=== PATIENT | male | born 1985 | race Caucasian/White ===

== ENCOUNTER 2017-03-18 14:27 | Emergency (ER) | payer MEDICAID ==
[~2017-03-18] VITALS: Ht 172.7 cm; Wt 78.0 kg
[2017-03-18 15:00] VITALS: BP 121/78
--- NOTE | 2017-03-18 17:51 | NUR ---
Patient ambulated to OF to be evaluated as fast track. RN evaluating patient in OF.
--- NOTE | 2017-03-18 18:15 | NUR ---
PATIENT DENIES DISCOMFORT.STILL IN OF.STILL NO BED AVAIL.
--- NOTE | 2017-03-18 18:26 | NUR ---
ERMD WITH PATIENT
[2017-03-18 19:05] VITALS: BP 124/69
--- NOTE | 2017-03-18 19:05 | NUR ---
Patient discharged with v/s stable. Written and verbal after care instructions given and explained. Patient alert, oriented and verbalized understanding of instructions. Ambulatory with steady gait. All questions addressed prior to discharge. ID band removed. Patient advised to follow up with PMD. Rx of ROBAXIN,MOTRIN given. Patient educated on indication of medication including possible reaction and side effects. Opportunity to ask questions provided and answered.
== END 2017-03-18 19:05 | disposition home or self-care (01) ==
LOC: MED 14:27
DX: S22.32XA Fracture of one rib, left side, initial encounter for closed fracture (principal); J45.909 Unspecified asthma, uncomplicated; F17.210 Nicotine dependence, cigarettes, uncomplicated; V19.9XXA Pedal cyclist (driver) (passenger) injured in unspecified traffic accident, initial encounter; Y93.89 Activity, other specified; Y92.89 Other specified places as the place of occurrence of the external cause; Y99.8 Other external cause status

== ENCOUNTER 2018-07-28 18:24 | Inpatient (IN) | payer MEDICAID, OTHER ==
[~2018-07-28] VITALS: Ht 172.7 cm; Wt 74.8 kg
[2018-07-28 18:30] VITALS: BP 106/68
--- NOTE | 2018-07-28 18:35 | NUR ---
pt taken out to the lobby at this time to wait for the next available bed w/vss. er and charge master specialist notified of pt status. will continue to monitor.
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
--- NOTE | 2018-07-28 19:11 | NUR ---
Pt report given to DALE RUBIN. Transfer of care at this time.
--- NOTE | 2018-07-28 19:16 | NUR ---
PT LAYING IN BED, ON PHONE APPEARS TO BE IN NO APPARENT DISTRESS.
--- NOTE | 2018-07-28 19:30 | NUR ---
URINE SPECIMEN NEEDED FOR LAB, PT UNABLE TO PROVIDE SAMPLE AT THIS TIME, PROVIDED W/ WATER, WILL FOLLOW UP.
[2018-07-28 21:05] LABS: APPEARANCE,URINE CLEAR (CLEAR); BILIRUBIN,URINE NEGATIVE (NEGATIVE); BLOOD, URINE NEGATIVE (NEGATIVE); COLOR,URINE YELLOW (YELLOW); LEUKOCYTE ESTERASE ,URINE NEGATIVE (NEGATIVE); NITRITE, URINE NEGATIVE (NEGATIVE); PH,URINE 6.5 (5.0-9.0); UGLUCOSE NEGATIVE (NEGATIVE)
[2018-07-28 21:21] LABS: RBC,URINE 0-5 (RARE) /HPF (0-5); WBC,URINE 0-5 (RARE) /HPF (0-5)
--- NOTE | 2018-07-28 22:20 | NUR ---
Dr. Bernstein evaluating patient at bedside.
[2018-07-28] MEDS ORDERED: MORPHINE SULFATE 4 MG/ML SYR IVP ONE (23:05)
[2018-07-28] MEDS ORDERED: NACL 0.9% 1,000 ML IV SCH (23:05)
[2018-07-28] MEDS ORDERED: ONDANSETRON 4 MG/2 ML VIAL IVP ONE (23:05)
[2018-07-29 00:03] LABS: BASOPHILS % (AUTO) 0.4 % (0.0-2.0); EOSINOPHILS # (AUTO) 0.1 K/uL (0-0.4); EOSINOPHILS % (AUTO) 0.5 % (0.0-4.0); HEMATOCRIT 41.2 % (36-52); HEMOGLOBIN 13.7 g/dL (12.0-18.0); LYMPHOCYTES # (AUTO) 1.3 K/uL (2.0-11.5); MEAN CORPUSCULAR HEMOGLOBIN 30 pg (27-31); MEAN CORPUSCULAR HGB CONC 33 g/dL (33-37); MEAN CORPUSCULAR VOLUME 89.5 fL (80-94); MONOCYTES # (AUTO) 1.1 K/uL (0.8-1.0); MONOCYTES % (AUTO) 9.6 % (1.7-9.3); NEUTROPHILS # (AUTO) 9.4 K/uL (1.8-7.7); NEUTROPHILS % (AUTO) 78.5 % (42.2-75.2); PLATELET COUNT (AUTO) 282 K/uL (140-450); RED CELL DISTRIBUTION WIDTH 12.8 % (11.6-13.7)
--- NOTE | 2018-07-29 00:07 | NUR ---
PT LAYING IN BED, COMFORT NEEDS MET AT THIS TIME, AWAITING LAB RESULTS FOR PT TO BE TAKEN TO CT SCAN, VSS.
[2018-07-29 00:21] LABS: ANION GAP 8.6 (8-16); CARBON DIOXIDE 30.1 mmol/L (21-32); POTASSIUM 3.7 mmol/L (3.5-5.1); TOTAL BILIRUBIN 0.5 mg/dL (0.0-1.0)
--- NOTE | 2018-07-29 01:07 | NUR ---
PT TAKEN TO CT
--- NOTE | 2018-07-29 01:26 | NUR ---
Kyler gabriel in [facility] - 07/29/18 at 0127 by JORGE PT TAKEN TO BED 7
--- NOTE | 2018-07-29 01:27 | NUR ---
PT RETURN FROM CT
[2018-07-29] MEDS ORDERED: PIPERACILLIN/TAZOBACTAM 4.5 GM in DEXTROSE 5% 100 ML IV ONE (02:05)
[2018-07-29] MEDS ORDERED: NACL 0.9% 1,000 ML IV ONE (02:05)
[2018-07-29] MEDS ORDERED: MORPHINE SULFATE 4 MG/ML SYR IVP ONE (02:05)
--- NOTE | 2018-07-29 02:12 | NUR ---
Dr. Bernstein re-evaluating patient at bedside.
[2018-07-29] MEDS ORDERED: PIPERACILLIN/TAZOBACTAM 2.25 GM VIAL IV ONE (02:18)
[2018-07-29 02:45] VITALS: BP 107/70
--- NOTE | 2018-07-29 02:45 | NUR ---
PT SLEEPING IN BED, VSS, PENDING ADMISSION.
--- NOTE | 2018-07-29 02:45 | NUR ---
PT ARRIVED AT UNIT VIA BED, PT AMBULATED TO BED, TOLERATED WELL, NO DISTRESS NOTED, REPORT RECEIVED FROM ED NURSE DAWSON RN, PT STABLE , IV TO R AC 20G PATENT, INTACT, PT ON ROOM AIR NO SOB, PT STATED PAIN AT 4/10 BUT TOLERABLE, ORIENT PT TO ROOM, BED, AND CALL LIGHT , PT STATED UNDERSTANDING, MRSA SWAB TAKEN, V/S TAKEN, WNL, LEFT PT SLEEPING, NO DISTRESS NOTED, CALL LIGHT WITHIN REACH, BED IN LOWEST POSITION, WILL CONTINUE TO MONITOR.
[2018-07-29] MEDS ORDERED: DEXT 5% / NACL 0.45% 1,000 ML IV ONE (03:00)
--- NOTE | 2018-07-29 03:25 | NUR ---
Patient will be admitted to care of Dr Treviño. Admited to [facility]. Will go to room 106B. Belongings list completed. Report to CARYN Cueto.
--- NOTE | 2018-07-29 05:20 | NUR ---
PT SLEEPING, NO DISTRESS NOTED, CALL LIGHT WITHIN REACH, WILL CONTINUE TO MONITOR.
--- NOTE | 2018-07-29 06:15 | NUR ---
PT STATED FEELING PAIN 04/28, PAIN MEDICATION GIVEN, PT TOLERATED WELL, NO DISTRESS NOTED, CALL LIGHT WITHIN REACH, WILL CONTINUE TO MONITOR. Addendum: 07/29/18 at 0646 by Nory Sommer RN WRONG PT.
[2018-07-29 06:58] LABS: BASOPHILS % (AUTO) 0.3 % (0.0-2.0); EOSINOPHILS # (AUTO) 0.1 K/uL (0-0.4); EOSINOPHILS % (AUTO) 0.4 % (0.0-4.0); HEMATOCRIT 41.2 % (36-52); HEMOGLOBIN 13.7 g/dL (12.0-18.0); LYMPHOCYTES # (AUTO) 1.2 K/uL (2.0-11.5); LYMPHOCYTES % (AUTO) 8.3 % (20.5-51.1); MEAN CORPUSCULAR HEMOGLOBIN 30 pg (27-31); MEAN CORPUSCULAR HGB CONC 33 g/dL (33-37); MEAN CORPUSCULAR VOLUME 89.7 fL (80-94); MONOCYTES # (AUTO) 1.1 K/uL (0.8-1.0); MONOCYTES % (AUTO) 7.5 % (1.7-9.3); NEUTROPHILS # (AUTO) 12.3 K/uL (1.8-7.7); NEUTROPHILS % (AUTO) 83.5 % (42.2-75.2); PLATELET COUNT (AUTO) 283 K/uL (140-450); RED BLOOD CELL COUNT(AUTO) 4.59 MIL/uL (4.20-6.10); RED CELL DISTRIBUTION WIDTH 13.1 % (11.6-13.7); WHITE BLOOD COUNT (AUTO) 14.7 K/uL (4.8-10.8)
[2018-07-29 07:18] LABS: ALBUMIN 2.8 g/dL (3.4-5.0); ANION GAP 13.1 (8-16); CARBON DIOXIDE 27.5 mmol/L (21-32); CREATININE 1.1 mg/dL (0.7-1.3); POTASSIUM 4.6 mmol/L (3.5-5.1); TOTAL BILIRUBIN 0.7 mg/dL (0.0-1.0)
--- NOTE | 2018-07-29 07:21 | NUR ---
ENDORSED PT TO DAY SHIFT NURSE GRZEGORZ RN, PT STABLE, NO DISTRESS NOTED, CALL LIGHT WITHIN REACH Addendum: 07/29/18 at 0733 by Nory Sommer RN ENDORSED PT TO DAY SHIFT NURSE TOÑO RN, PT STABLE, NO DISTRESS NOTED, CALL LIGHT WITHIN REACH
--- NOTE | 2018-07-29 07:25 | NUR ---
RECEIVED PT FROM FLAME ANNEALING MACHINE OPERATOR NURSE, NIKI, PT IS AWAKE AND LYING ON THE BED WITH SIDE RAILS UP AND CALL LIGHT WITHIN REACH. PT HAS AN IV LINE ON THE RT AC G.20 WITH D5 1/2 NS RUNNING AT 75 ML/HR, INTACT. PT WAS ON NPO EXCEPT MEDS AND ALERT, ORIENTED. PT DENIES PAIN AT THIS TIME. WILL CONTINUE TO MONITOR PT.
--- NOTE | 2018-07-29 07:50 | NUR ---
PT IS AWAKE AND VITAL SIGNS TAKEN AND WITHIN NORMAL LIMITS. NO SIGN OF DISTRESS NOTED AND WILL CONTINUE TO MONITOR PT.
[2018-07-29 08:00] VITALS: BP 110/72
--- NOTE | 2018-07-29 08:28 | NUR ---
PATIENT HAS BEEN SCREENED AND CATEGORIZED HIGH NUTRITION RISK. PATIENT WILL BE SEEN WITHIN 1-2 DAYS OF ADMISSION. 07/29/18 07/30/[address]
--- NOTE | 2018-07-29 09:20 | NUR ---
DR. LEAHY WENT TO PT'S ROOM AND SPOKE TO PT REGARDING THE PLAN OF CARE AND PT VERBALIZED UNDERSTANDING.
--- NOTE | 2018-07-29 09:38 | NUR ---
PT IS AWAKE, ALERT AND ORIENTED, CONSENT WAS SIGNED FOR THE LAPAROSCOPIC POSSIBLE APPENDECTOMY PROCEDURE, WILL FACILITATE PRE-OPERATIVE CHECKLIST.
--- NOTE | 2018-07-29 11:20 | NUR ---
PT WAS TAKEN BY OR NURSES FOR A LAPAROSCOPIC POSSIBLE APPENDECTOMY PROCEDURE TO BE DONE BY DR. MADY LOBO.
[2018-07-29] MEDS ORDERED: BUPIVACAINE-MPF/EPI 0.5% 30 ML VIAL INJ ONE (11:46)
[2018-07-29] MEDS ORDERED: PIPER/TAZO 3.375GM/D5W PREMIX 50 ML IV SCH (12:00)
[2018-07-29] MEDS ORDERED: ONDANSETRON 4 MG/2 ML VIAL ONE (12:02)
[2018-07-29] MEDS ORDERED: DEXAMETHASONE 4 MG/ML VIAL ONE (12:02)
[2018-07-29] MEDS ORDERED: NEOSTIGMINE 1:1000 10 MG/10 ML VIAL ONE (12:02)
[2018-07-29] MEDS ORDERED: ROCURONIUM 50 MG/5 ML VIAL IV ONE (12:02)
[2018-07-29] MEDS ORDERED: GLYCOPYRROLATE 0.2 MG/ML VIAL ONE (12:02)
[2018-07-29] MEDS ORDERED: DESFLURANE 240 ML BTL INH ONE (12:02)
[2018-07-29] MEDS ORDERED: PIPERACILLIN/TAZOBACTAM 3.375 GM VIAL IV ONE ×2 (12:02→12:38)
[2018-07-29] MEDS ORDERED: SUCCINYLCHOLINE CHLORIDE 200 MG/10 ML VIAL IVP ONE (12:02)
[2018-07-29] MEDS ORDERED: PROPOFOL 200 MG/20 ML VIAL IV ONE (12:02)
[2018-07-29] MEDS ORDERED: fentaNYL 0.05 MG/ML VIAL ONE (12:03)
[2018-07-29] MEDS ORDERED: HYDROmorphone PFS 2 MG/ML SYR ONE (12:03)
[2018-07-29] MEDS ORDERED: HYDROmorphone 1 MG/ML AMP IVP PRN (12:05)
[2018-07-29] MEDS ORDERED: ONDANSETRON 4 MG/2 ML VIAL IVP PRN (12:05)
[2018-07-29] MEDS ORDERED: MORPHINE SULFATE 2 MG/ML SYR IVP PRN (13:45)
[2018-07-29] MEDS ORDERED: ONDANSETRON 4 MG/2 ML VIAL IV PRN (13:45)
[2018-07-29] MEDS ORDERED: HYDROcodone/APAP 5/325 MG 1 TAB TAB PO PRN (13:45)
[2018-07-29] MEDS: NACL 0.9% 1,000 ML IV SCH ×2 (13:45→22:35)
[2018-07-29 15:05] VITALS: BP 115/69
--- NOTE | 2018-07-29 15:05 | NUR ---
PT IS BACK TO THE ROOM FROM LAPAROSCOPIC POSSIBLE APPENDECTOMY PROCEDURE. VITAL SIGNS TAKEN ANS IS WITHIN NORMAL LIMITS AND STABLE. WILL MONITOR PT.
[2018-07-29 16:00] VITALS: BP 119/77
--- NOTE | 2018-07-29 16:00 | NUR ---
PT IS ASLEEP AND RESPIRATIONS EVEN, VITAL SIGNS TAKEN AND IS WITHIN NORMAL LIMITS, NO SIGN OF DISTRESS NOTED AND WILL CONTINUE TO MONITOR.
[2018-07-29] MEDS: PIPERACILLIN/TAZOBACTAM 4.5 GM in DEXTROSE 5% 100 ML IV SCH ×2 (18:41→23:38)
--- NOTE | 2018-07-29 18:45 | NUR ---
PT IS AWAKE WITH FAMILY ON THE BEDSIDE, CHIQUITA BULB DRAINED 20ML, MEDICATION GIVEN VIA IVPB, AND PT TOLERATED IT, ORAL CARE DONE AND NO SIGN OF DISTRESS NOTED. WILL CONTINUE TO MONITOR.
--- NOTE | 2018-07-29 19:30 | NUR ---
ENDORSED PT TO SCOW HAND NURSEROSALBA FOR CONTINUITY OF CARE, PT IS STABLE AT THIS TIME WITH FAMILY ON THE BEDSIDE.
--- NOTE | 2018-07-29 19:30 | NUR ---
RECD. RESTING IN BED, AWAKE, A/OX4. RESPIRATION EVEN AND UNLABORED. IV OF D51/2 NS AT 75 ML/HR INFUSING, RIGHT AC G20. INCISION IN THE ABDOMEN COVERED WITH DRESSING, WITH 1 CHIQUITA AT THE RIGHT LOWER QUADRANT DRAINING SEROSANGUINEOUS FLUID, MINIMAL AMOUNT. STATED PASSING GAS, HAVEN'T VOIDED YET. ON BILATERAL LEG SEQUENTIALS. PLAN OF CARE FOR THE SHIFT DISCUSSED. VERBALIZED UNDERSTANDING. DENIES PAIN 0/10. VS STABLE.
[2018-07-29 20:00] VITALS: BP 115/80
--- NOTE | 2018-07-29 20:00 | NUR ---
Patient's Plan of Care was discussed and reviewed with CLAM SHUCKER: ROSALBA MARTÍNEZ
--- NOTE | 2018-07-29 21:10 | NUR ---
ASSISTED TO GET OUT OF BED AND VOID IN THE URINAL. BACK TO BED AFTER VOIDING.
--- NOTE | 2018-07-29 22:30 | NUR ---
PAGED DR. LOBO THREE TIMES, PATIENT DOES NOT WANT NORCO, WANTS MOTRIN.
[2018-07-29] MEDS: MORPHINE SULFATE 4 MG/ML SYR IV PRN (23:35)
[2018-07-30] VITALS: BP 112/75
--- NOTE | 2018-07-30 | NUR ---
SLEEPING COMFORTABLY IN BED.
--- NOTE | 2018-07-30 04:00 | NUR ---
STILL SLEEPING COMFORTABLY IN BED.
[2018-07-30] MEDS: NACL 0.9% 1,000 ML IV SCH ×2 (05:09→12:13)
[2018-07-30] MEDS: PIPERACILLIN/TAZOBACTAM 4.5 GM in DEXTROSE 5% 100 ML IV SCH ×3 (05:49→17:53)
[2018-07-30] MEDS: MORPHINE SULFATE 4 MG/ML SYR IV PRN (05:53)
--- NOTE | 2018-07-30 07:00 | NUR ---
CONDITION REMAIN STABLE. COMPLAINT OF ABDOMINAL PAIN ATTENDED PROMPTLY, MEDICATED ORDERED. WILL ENDORSED TO AM NURSE FOR CONTINUITY OF CARE.
--- NOTE | 2018-07-30 07:15 | NUR ---
ENDORSED TO AM NURSE FOR CONTINUITY OF CARE.
--- NOTE | 2018-07-30 07:16 | NUR ---
RECEIVED REPORT FROM THE APPLE PRESS OPERATOR NURSE AT BEDSIDE FOR CONTINUITY OF CARE. PT IS AWAKE AND ORIENTED. INTRODUCED MYSELF AND UPDATED THE BOARD. PT IS ON ROOM AIR. R AC 20G NS 130ML INFUSING. ABD DRESSINGS, S/P OPEN APPY 07/29. CHIQUITA DRAIN IN PLACE. V/S WITHIN NORMAL RANGE. MILD PAIN. TOLERABLE. LBM YESTERDAY AM. PASSING GAS. STILL NPO. EMPTIED 400ML YELLOW URINE FROM URINAL. WILL CONTINUE TO MONITOR PT.
[2018-07-30 08:00] VITALS: BP 115/80
--- NOTE | 2018-07-30 09:45 | NUR ---
PT IS SLEEPING SOUNDLY NO SIGNS OF DISTRESS.
--- NOTE | 2018-07-30 10:15 | NUR ---
DR. LOBO CAME IN TO ASSESS PT. ORDERED TPN. SPOKE TO SUPERVISOR SHRIMP POND.
--- NOTE | 2018-07-30 11:37 | NUR ---
CM NOTE INITIAL REVIEW FAXED TO [facility] [phone] MARITZA # [phone]
[2018-07-30 12:10] LABS: BASOPHILS % (AUTO) 0.1 % (0.0-2.0); HEMATOCRIT 39.9 % (36-52); HEMOGLOBIN 13.3 g/dL (12.0-18.0); LYMPHOCYTES # (AUTO) 1.3 K/uL (2.0-11.5); LYMPHOCYTES % (AUTO) 9.5 % (20.5-51.1); MEAN CORPUSCULAR HEMOGLOBIN 30 pg (27-31); MEAN CORPUSCULAR HGB CONC 33 g/dL (33-37); MEAN CORPUSCULAR VOLUME 88.5 fL (80-94); MONOCYTES # (AUTO) 1.2 K/uL (0.8-1.0); MONOCYTES % (AUTO) 8.9 % (1.7-9.3); NEUTROPHILS # (AUTO) 10.8 K/uL (1.8-7.7); NEUTROPHILS % (AUTO) 81.5 % (42.2-75.2); PLATELET COUNT (AUTO) 334 K/uL (140-450); RED BLOOD CELL COUNT(AUTO) 4.51 MIL/uL (4.20-6.10); WHITE BLOOD COUNT (AUTO) 13.2 K/uL (4.8-10.8)
--- NOTE | 2018-07-30 12:15 | NUR ---
ADMINISTERED NEW IVF AND ZOSYN. PT SLEEPING. NO SIGNS OF DISTRESS. WILL CONTINUE TO MONITOR PT.
[2018-07-30 13:39] LABS: ALBUMIN 2.2 g/dL (3.4-5.0); ANION GAP 10.9 (8-16); CARBON DIOXIDE 29.5 mmol/L (21-32); POTASSIUM 4.4 mmol/L (3.5-5.1); TOTAL BILIRUBIN 0.5 mg/dL (0.0-1.0)
--- NOTE | 2018-07-30 14:03 | NUR ---
ADMINISTERED D10 IVF AT 130ML/HR PER MD AND PHARMACIST. PT JUST SLEEPING. NO SIGNS OF DISTRESS. WILL CONTINUE TO MONITOR PT.
[2018-07-30] MEDS: DEXTROSE 10% 1,000 ML IV SCH ×2 (14:05→21:07)
--- NOTE | 2018-07-30 14:50 | NUR ---
07/30/18 RD INITIAL ASSESSMENT COMPLETED PLEASE REFER TO NUTRITION ASSESSMENT UNDER CARE ACTIVITY FOR ESTIMATED NUTRITIONAL NEEDS. 1.CONTINUE NPO MEDICALLY APPROPRIATE. 2.IF PT IS GOING TO BE NPO FOR >2 DAYS, CONSIDER TPN PER MD ORDERS. 3. RD TO FOLLOW-UP 2-3 DAYS, HIGH RISK KIMBERLY URE[address]A RD
[2018-07-30 16:00] VITALS: BP 126/89
[2018-07-30] MEDS: HYDROmorphone 1 MG/ML AMP IVP PRN (17:31)
--- NOTE | 2018-07-30 18:23 | NUR ---
LATE ENTRY: ADMINISTERED DILAUDID. PRE MEDICATED PT PRIOR TO DOING WOUND CARE. PT'S BEEN SLEEPING ALL DAY SO I WAITED TO DO WOUND CARE UNTIL HE WOKE UP. REMOVED DRESSING. REMOVED PACKING. PATTED DRY. TOOK PICTURE, MEASURED WOUND, FLUSHED AND REPACKED WOUND. ABDOMINAL PAD AND TAPE. EMPTIED CHIQUITA DRAIN 30ML YELLOWISH RED, CLOUDY DRAINAGE. PT TOLERATED WELL. ADMINISTERED ZOSYN. WILL CONTINUE TO MONITOR PT. Addendum: 07/30/18 at 1826 by Cley Acosta RN MEASUREMENTS FOR WOUND: MIDLINE ABD 10CM (L) X 2.5CM (W) X 2 CM (D). ADIPOSE TISSUE.
--- NOTE | 2018-07-30 19:25 | NUR ---
ENDORSED PT TO THE NIGHTSHIFT NURSE AT BEDSIDE FOR CONTINUITY OF CARE. PT IS IN STABLE CONDITION.
--- NOTE | 2018-07-30 19:25 | NUR ---
RECEIVED BEDSIDE REPORT FROM RN KARLA, PT AWAKE IN BED, ON RA, NO SIGNS OF DISTRESS. IV ON RIGHT AC 20 G INFUSING D 10 AT 130 ML/HR, DRESSING IN TACT. RIGHT CHIQUITA DRAIN, SEROSANGUINEOUS DRAINAGE NOTED AT 25 ML, DRESSING INTACT, AND CLEAN, PICTURE FOR APPENDECTOMY TAKEN AND PLACED IN CHART. PT DENIES PAIN AT THIS TIME. CALL LIGHT WITHIN REACH, WILL CONTINUE TO MONITOR.
--- NOTE | 2018-07-30 22:35 | NUR ---
CALLED DR LOBO TO FOLLOW UP ON ORDER FOR PT TO BE PLACED ON TELE MONITORING, DR LOBO STATED PT DOES NOT NEED TO BE ON TELE AND IS OKAY TO BE ON MED-SURG. WILL CANCEL ORDER. WILL CONTINUE TO MONITOR.
--- NOTE | 2018-07-30 22:48 | NUR ---
URINE OUTPUT AT 400 ML, CLEAR YELLOW. PT DENIES PAIN, ICE CHIPS OFFERED. WILL CONTINUE TO MONITOR.
[2018-07-31] VITALS: BP 130/78
--- NOTE | 2018-07-31 00:05 | NUR ---
V/S TAKEN ALL WITHIN BASELINE, WILL GIVE DUE MEDICATION. DENIES PAIN. CALL LIGHT WITHIN REACH, WILL CONTINUE TO MONITOR.
--- NOTE | 2018-07-31 03:00 | NUR ---
PT SLEEPING IN BED NO SIGNS OF DISTRESS. WILL CONTINUE TO MONITOR.
[2018-07-31] MEDS: DEXTROSE 10% 1,000 ML IV SCH ×3 (04:52→20:13)
[2018-07-31] MEDS: PIPERACILLIN/TAZOBACTAM 4.5 GM in DEXTROSE 5% 100 ML IV SCH ×6 (05:21→23:31)
[2018-07-31] MEDS ORDERED: DEXTROSE 10% 1,000 ML IV ONE (05:53)
--- NOTE | 2018-07-31 05:59 | NUR ---
PT ASLEEP IN BED NO SIGNS OF DISTRESS. FLUSHED IV WITH 10 ML. WILL CONTINUE TO MONITOR.
--- NOTE | 2018-07-31 07:17 | NUR ---
ENDORSED PT TO DAY SHIFT NURSE, PT STABLE.
--- NOTE | 2018-07-31 07:18 | NUR ---
RECEIVED SBAR REPORT FROM CARYN ALCARAZ AT PT BEDSIDE. PATIENT IS ALERT AND ORIENTED. DENIES ABDOMINAL PAIN. ON ROOM AIR, NO ACUTE RESPIRATORY DISTRESS NOTED. IV SITE PATENT AND INTACT. ABDOMINAL WOUND DRESSING CLEAN AND INTACT. CHIQUITA DRAIN TO 15ML SEROSANGUINEOUS DRAINAGE. DENIES N/V, CALL LIGHT WITHIN REACH. MADE AWARE OF CURRENT PLAN OF CARE, IN AGREEMENT.
[2018-07-31 07:59] LABS: BASOPHILS % (AUTO) 0.2 % (0.0-2.0); EOSINOPHILS # (AUTO) 0.1 K/uL (0-0.4); EOSINOPHILS % (AUTO) 0.6 % (0.0-4.0); HEMATOCRIT 37.2 % (36-52); HEMOGLOBIN 12.6 g/dL (12.0-18.0); LYMPHOCYTES # (AUTO) 1.9 K/uL (2.0-11.5); LYMPHOCYTES % (AUTO) 16.1 % (20.5-51.1); MEAN CORPUSCULAR HEMOGLOBIN 30 pg (27-31); MEAN CORPUSCULAR HGB CONC 34 g/dL (33-37); MONOCYTES # (AUTO) 1.1 K/uL (0.8-1.0); MONOCYTES % (AUTO) 9.6 % (1.7-9.3); NEUTROPHILS # (AUTO) 8.7 K/uL (1.8-7.7); NEUTROPHILS % (AUTO) 73.5 % (42.2-75.2); PLATELET COUNT (AUTO) 352 K/uL (140-450); RED BLOOD CELL COUNT(AUTO) 4.22 MIL/uL (4.20-6.10); RED CELL DISTRIBUTION WIDTH 13.1 % (11.6-13.7); WHITE BLOOD COUNT (AUTO) 11.9 K/uL (4.8-10.8)
[2018-07-31 08:00] VITALS: BP 107/78
[2018-07-31] MEDS: ENOXAPARIN 40 MG/0.4 ML SYR SUBQ SCH (09:07)
--- NOTE | 2018-07-31 10:17 | NUR ---
PATIENT RESTING IN BED, DENIES DISCOMFORT.
--- NOTE | 2018-07-31 11:30 | NUR ---
PATIENT SEEN BY DR. LOBO AT BEDSIDE, CONTINUE WITH CURRENT PLAN OF CARE. WOUND DRESSING CHANGED AT BEDSIDE. MD AWARE OF CURRENT CHIQUITA OUTPUT. NO ACUTE DISTRESS NOTED.
[2018-07-31] MEDS: HYDROmorphone 1 MG/ML AMP IVP PRN (11:31)
--- NOTE | 2018-07-31 11:57 | NUR ---
PATIENT SEEN BY DR. LEAHY AT BEDSIDE. NO NEW ORDERS. CONTINUE WITH CURRENT PLAN OF CARE.
--- NOTE | 2018-07-31 14:12 | NUR ---
CM NOTE CONCURRENT REVIEW FAXED TO [facility] [phone] MARITZA # [phone]
--- NOTE | 2018-07-31 15:00 | NUR ---
ASSISTED PT IN AMBULATION AROUND NURSING UNIT. TOLERATED WELL, NO ACUTE DISTRESS NOTED. PATIENT LINENS CHANGED, CLEAN AND DRY.
[2018-07-31 16:00] VITALS: BP 112/79
--- NOTE | 2018-07-31 17:20 | NUR ---
PATIENT RESTING IN BED. NO ACUTE DISTRESS NOTED.
--- NOTE | 2018-07-31 19:10 | NUR ---
SBAR REPORT GIVEN TO CARYN RIZVI AT PT BEDSIDE. PATIENT RESTING IN BED, FAMILY AT BEDSIDE, AWARE OF CURRENT PLAN OF CARE. NO ACUTE DISTRESS NOTED.
--- NOTE | 2018-07-31 19:11 | NUR ---
REPORT RECEIVED FROM AM NURSE AT BEDSIDE. PT IN STABLE CONDITION. AAOX4. INTRODUCED SELF TO FAMILY AND PT. BOARD UPDATED. IV SITE PATENT AND INTACT R AC 20G RUNNING D10@130ML/HR. SKIN WARM, DRY, AND NOT INTACT DUE TO WOUND INDUSTRIAL SAFETY AND HEALTH TECHNICIAN FROM SURGERY. CHIQUITA DRAINING PROPERLY. BED LOCKED IN LOW POSITION. CALL NEGRON WITHIN REACH. SAFETY MEASURES IN PLACE. Addendum: 07/31/18 at 2117 by Eagle Ballard RN PT HAS NO COMPLAINTS OF PAIN.
--- NOTE | 2018-07-31 21:10 | NUR ---
PT LAYING IN BED ALERT AND ORIENTED. NO COMPLAINTS OF PAIN.
--- NOTE | 2018-07-31 23:31 | NUR ---
VASQUEZ MORROW. PT TOLERATED WELL. PT SLEEPING WITH NO S/S OF DISTRESS.
[2018-08-01] VITALS: BP 127/73
--- NOTE | 2018-08-01 01:00 | NUR ---
CHIQUITA DRAIN DRAINING PROPERLY. OUTPUT OF 35ML OF SEROSANGUINOUS FLUID. DRESSING DRY AND INTACT. PT STATES NO PAIN. NEGATIVE PRESSURE REAPPLIED TO DRAIN. WILL CONTINUE TO MONITOR.
--- NOTE | 2018-08-01 03:05 | NUR ---
PT SLEEPING COMFORTABLY IN BED. NO S/S OF DISTRESS. RESPIRATIONS WNL AND UNLABORED. WILL CONTINUE TO MONITOR.
[2018-08-01] MEDS: DEXTROSE 10% 1,000 ML IV SCH ×3 (03:35→20:23)
[2018-08-01] MEDS: PIPERACILLIN/TAZOBACTAM 4.5 GM in DEXTROSE 5% 100 ML IV SCH ×3 (05:05→18:17)
--- NOTE | 2018-08-01 05:05 | NUR ---
VASQUEZ MORROW. PT TOLERATING WELL.
--- NOTE | 2018-08-01 07:10 | NUR ---
REPORT GIVEN TO DIXON RUBIN. PT IN STABLE CONDITION.
[2018-08-01 08:00] VITALS: BP 126/81
--- NOTE | 2018-08-01 08:30 | NUR ---
Patient in bed, abd incision with drsg, and CHIQUITA drain with minimal output. No co pain. Patient is passing flatus, and is starting to het hungry. Otis Whitten RN
[2018-08-01] MEDS: ENOXAPARIN 40 MG/0.4 ML SYR SUBQ SCH (10:12)
[2018-08-01 11:57] LABS: BASOPHILS % (AUTO) 0.5 % (0.0-2.0); EOSINOPHILS # (AUTO) 0.1 K/uL (0-0.4); EOSINOPHILS % (AUTO) 1.3 % (0.0-4.0); HEMATOCRIT 41.1 % (36-52); HEMOGLOBIN 13.9 g/dL (12.0-18.0); LYMPHOCYTES # (AUTO) 1.5 K/uL (2.0-11.5); LYMPHOCYTES % (AUTO) 15.5 % (20.5-51.1); MEAN CORPUSCULAR HEMOGLOBIN 30 pg (27-31); MEAN CORPUSCULAR HGB CONC 34 g/dL (33-37); MEAN CORPUSCULAR VOLUME 88.7 fL (80-94); MONOCYTES # (AUTO) 0.7 K/uL (0.8-1.0); MONOCYTES % (AUTO) 7.3 % (1.7-9.3); NEUTROPHILS # (AUTO) 7.2 K/uL (1.8-7.7); NEUTROPHILS % (AUTO) 75.4 % (42.2-75.2); PLATELET COUNT (AUTO) 411 K/uL (140-450); RED BLOOD CELL COUNT(AUTO) 4.63 MIL/uL (4.20-6.10); RED CELL DISTRIBUTION WIDTH 13.1 % (11.6-13.7); WHITE BLOOD COUNT (AUTO) 9.6 K/uL (4.8-10.8)
--- NOTE | 2018-08-01 12:00 | NUR ---
Patient NPO, and is wanting food. I encouraged him to talk to primary MD regarding diet order. No co pain. Otis Whitten RN
--- NOTE | 2018-08-01 14:51 | NUR ---
CM NOTE CONCURRENT REVIEW FAXED TO [facility] [place] [phone] MARITZA # [phone]
--- NOTE | 2018-08-01 18:00 | NUR ---
Patient request to ambulate in hernandez, and I did disconnect the IV so as the patient can ambulate freely in hernandez, and patient ambulates > 300 feet, and no signs of exertion. Otis Whitten RN
--- NOTE | 2018-08-01 19:30 | NUR ---
REPORT RECEIVED FROM AM NURSE AT BEDSIDE. PT IN STABLE CONDITION. AAOX4. BOARD UPDATED AND INTRODUCED SELF TO PT. IV SITE R AC 20G RUNNING D10@130ML/HR PATENT AND INTACT. SKIN WARM, DRY, AND NOT INTACT DUE TO SURGICAL WOUND. DRESSING DRY AND INTACT. CHIQUITA DRAIN DRAINING PROPERLY THROUGH NEGATIVE PRESSURE. PT AMBULATORY. BED LOCKED IN LOW POSITION. CALL NEGRON WITHIN REACH.
--- NOTE | 2018-08-01 22:40 | NUR ---
PT SLEEPING COMFORTABLY WITH NO COMPLAINTS OF PAIN OR DISCOMFORT. SYMMETRICAL CHEST EXPANSION VIEWED. AUDIBLE BREATHING NOTED. WILL CONTINUE TO MONITOR.
[2018-08-02] VITALS: BP 118/81
[2018-08-02] MEDS: PIPERACILLIN/TAZOBACTAM 4.5 GM in DEXTROSE 5% 100 ML IV SCH ×4 (00:39→17:10)
--- NOTE | 2018-08-02 00:39 | NUR ---
VASQUEZ MORROW. PT TOLERATED WELL.
--- NOTE | 2018-08-02 03:00 | NUR ---
PT SLEEPING COMFORTABLY IN BED SUPINE. NO S/S OF DISTRESS. AUDIBLE BREATHING NOTED. WILL CONTINUE TO MONITOR.
[2018-08-02] MEDS: DEXTROSE 10% 1,000 ML IV SCH ×3 (03:27→19:45)
--- NOTE | 2018-08-02 05:15 | NUR ---
VASQUEZ MORROW. PT TOLERATED WELL.
--- NOTE | 2018-08-02 07:00 | NUR ---
REPORT GIVEN TO AM NURSE AT BEDSIDE. PT IN STABLE CONDITION.
--- NOTE | 2018-08-02 07:00 | NUR ---
RECEIVED REPORT FROM NIGHTSHIFT NURSE AT BEDSIDE. PATIENT IS ASLEEP AT THIS TIME. PATIENT IS AROUASABLE. ASSESSED PATIENT'S DRESSING. DRESSING IS DRY AND INTACT. PATIENT HAS VERY LITTLE DRAINAGE IN CHIQUITA TUBE. DRAINAGE APPEARS SEROSANGUINEOUS AT THIS TIME. PER REPORT, DRAINAGE IS DECREASING AND 40 ML WAS DRAINED LAST NIGHT. PATIENT HAS AN IV NOTED ON HIS RIGHT AC 20 G. NO DISTRESS NOTED. NO PAIN NOTED. UPDATED BOARD IN PATIENT'S ROOM. CALL LIGHT WITHIN REACH OF PATIENT. WILL CONTINUE TO MONITOR PATIENT.
[2018-08-02 08:00] VITALS: BP 128/75
[2018-08-02] MEDS: ENOXAPARIN 40 MG/0.4 ML SYR SUBQ SCH (09:42)
--- NOTE | 2018-08-02 10:52 | NUR ---
08/02/18 RD FOLLOW UP COMPLETED PLEASE REFER TO NUTRITION PROGRESS NOTE UNDER CARE ACTIVITY FOR ESTIMATED NUTRITIONAL NEEDS. 1. CONTINUE FULL LIQUID DIET TOLERATED. 2. RECOMMEND HEALTH SHAKES WITH EVERY MEAL. 3. RD TO FOLLOW-UP 5-7 DAYS, LOW RISK KIMBERLY UREÑA, RD
--- NOTE | 2018-08-02 10:55 | NUR ---
PATIENT RESTING AT THIS TIME. NO DISTRESS NOTED. WILL CONTINUE TO MONITOR PATIENT.
--- NOTE | 2018-08-02 11:34 | NUR ---
CM NOTE CONCURRENT REVIEW FAXED TO [facility] [phone] MARITZA # [phone]
--- NOTE | 2018-08-02 15:43 | NUR ---
ASKED PATIENT IF I CAN START A NEW IV LINE SINCE HIS LINE . PATIENT REFUSED. WILL CONTINUE TO MONITOR PATIENT.
[2018-08-02 16:00] VITALS: BP 111/66
--- NOTE | 2018-08-02 16:29 | NUR ---
PATIENT WALKING AROUND NURSING STATION. PATIENT ABLE TO AMBULATE WELL. NO EXACERBATED PAIN IN ABDOMEN WHILE WALKING. WILL CONTINUE TO MONITOR PATIENT.
--- NOTE | 2018-08-02 19:15 | NUR ---
GAVE REPORT TO NIGHTSHIFT NURSE AT BEDSIDE. PATIENT IN STABLE CONDITION.
--- NOTE | 2018-08-02 19:16 | NUR ---
RECEIVED REPORT FROM DAY SHIFT RN FOR CONTINUITY OF CARE. PT IS A/OX4, ON ROOM AIR. PT IS ABLE TO MAKE NEEDS KNOWN, ABLE TO FOLLOW COMMANDS. PT AMBULATES WITH STEADY GAIT. PT IS S/P APPENDECTOMY WITH MYNOR MINER DRAINING SEROSANGUINEOUS SECRETIONS. PT HAS A 20G IV TO RIGHT AC, ASYMPTOMATIC. DISCUSSED PLAN OF CARE WITH PT, PT VERBALIZED UNDERSTANDING. VITAL SIGNS WITHIN NORMAL LIMITS. PT STABLE, NO SIGNS OF DISTRESS NOTED AT THIS TIME. BED IN LOWEST POSITION, BED ALARM ON. CALL LIGHT WITHIN REACH, WILL CONTINUE TO MONITOR.
[2018-08-02 19:42] VITALS: BP 148/91
--- NOTE | 2018-08-02 22:00 | NUR ---
PT STABLE, NO SIGNS OF DISTRESS NOTED AT THIS TIME. BED IN LOWEST POSITION, BED ALARM ON. CALL LIGHT WITHIN REACH, WILL CONTINUE TO MONITOR.
[2018-08-03] VITALS: BP 125/79
--- NOTE | 2018-08-03 | NUR ---
IV ABX NOW INFUSING, PT TOLERATING WELL. VITAL SIGNS WITHIN NORMAL LIMITS. PT STABLE, NO SIGNS OF DISTRESS NOTED AT THIS TIME. BED IN LOWEST POSITION, BED ALARM ON. CALL LIGHT WITHIN REACH, WILL CONTINUE TO MONITOR.
[2018-08-03] MEDS: PIPERACILLIN/TAZOBACTAM 4.5 GM in DEXTROSE 5% 100 ML IV SCH ×2 (00:55→05:38)
--- NOTE | 2018-08-03 02:00 | NUR ---
PT RESTING, STABLE, NO SIGNS OF DISTRESS NOTED AT THIS TIME. BED IN LOWEST POSITION, BED ALARM ON. CALL LIGHT WITHIN REACH, WILL CONTINUE TO MONITOR.
--- NOTE | 2018-08-03 04:15 | NUR ---
PT SLEEPING, EASILY AWAKENED. PT STABLE, NO SIGNS OF DISTRESS NOTED AT THIS TIME. BED IN LOWEST POSITION, BED ALARM ON. CALL LIGHT WITHIN REACH, WILL CONTINUE TO MONITOR.
[2018-08-03] MEDS ORDERED: DEXTROSE 10% 1,000 ML IV ONE (06:16)
[2018-08-03] MEDS: DEXTROSE 10% 1,000 ML IV SCH ×2 (06:20→09:49)
--- NOTE | 2018-08-03 06:20 | NUR ---
CHIQUITA DRAIN HAD ABOUT 20ML OF SEROSANGUINEOUS SECRETIONS. CHIQUITA DRAINED.
[2018-08-03 07:11] LABS: ALBUMIN 2.3 g/dL (3.4-5.0); TOTAL BILIRUBIN 0.3 mg/dL (0.0-1.0)
[2018-08-03 07:19] LABS: POTASSIUM 3.8 mmol/L (3.5-5.1)
[2018-08-03 07:34] LABS: ANION GAP 8.8 (8-16)
--- NOTE | 2018-08-03 07:34 | NUR ---
ENDORSED PT TO DAY SHIFT RN FOR CONTINUITY OF CARE. PT IN STABLE CONDITION.
--- NOTE | 2018-08-03 07:35 | NUR ---
RECEIVED REPORT FROM THE SHAFT REPAIRER CAROL ANN. PT IS A'OX4 VERBALLY RESPONSIVE ABLE TO MAKE HIS NEEDS KNOWN. DENIES ANY PIAN AT THIS TIME. VS WNL. RESPIRATION EVEN AND UNLABOURED. O2 SAT 97% ON RA. CHIQUITA DRAIN INTACT DRAINING SEROUSSANGIUNIOUS FLUID. 25ML DRAIN DURING SHAFT REPAIRER. NKDA. IV SITE CLEAN, DRY INTACT , PATENT INFUSING D10 @130ML/HR , TOLERATING WELL. ABDOMEN SOFT NON DISTENDED. BOWEL SOUNDS PRESENT X4 QUADRANTS. PLAN OF CARE REVIWED WITH THE PATIENT, PATIENT VERBALIZED UNDERSTANDING. SAFETY MEASURES IN PLACE. CALL LIGHT WITHIN REACH. HOURLY ROUNDS ONGOING. WILL CONTINUE TO MONITOR CLOSELY.
[2018-08-03 08:00] VITALS: BP 125/84
[2018-08-03] MEDS: ENOXAPARIN 40 MG/0.4 ML SYR SUBQ SCH (08:35)
[2018-08-03 09:07] LABS: HEMATOCRIT 41.5 % (36-52); MEAN CORPUSCULAR VOLUME 90.1 fL (80-94); WHITE BLOOD COUNT (AUTO) 11.6 K/uL (4.8-10.8)
[2018-08-03 09:08] LABS: BASOPHILS % (AUTO) 0.4 % (0.0-2.0); EOSINOPHILS % (AUTO) 1.9 % (0.0-4.0); LYMPHOCYTES # (AUTO) 2.3 K/uL (2.0-11.5); MEAN CORPUSCULAR HEMOGLOBIN 30 pg (27-31); MEAN CORPUSCULAR HGB CONC 34 g/dL (33-37); MONOCYTES # (AUTO) 0.8 K/uL (0.8-1.0); MONOCYTES % (AUTO) 6.6 % (1.7-9.3); NEUTROPHILS # (AUTO) 8.3 K/uL (1.8-7.7); NEUTROPHILS % (AUTO) 71.1 % (42.2-75.2); PLATELET COUNT (AUTO) 519 K/uL (140-450); RED CELL DISTRIBUTION WIDTH 12.1 % (11.6-13.7)
[2018-08-03 09:09] LABS: EOSINOPHILS # (AUTO) 0.2 K/uL (0-0.4)
--- NOTE | 2018-08-03 09:15 | NUR ---
PATIENT LYING DOWN IN BED SLEEPING, AROUSABLE BY VOICE. NO DISTRESS NOTED. DENIES ANY PAIN. REFUSED ENOXAPARIN SUB-Q INJECTION. WILL CONTINUE TO MONITOR.
--- NOTE | 2018-08-03 11:00 | NUR ---
DISCHARGE INSTRUCTIONS GIVEN TO PATIENT/FAMILY AT BED SIDE IN PREFERD LANGUAGE OF TURKISH. FOLLOW UP WITH DR. LOBO INSTRUCTIONS PROVIDED, DIET REGIMEN, MEDICATION REGIMEN, WOUND CARE AND DISEASE PROCESS OF APPENDICITIS. ANSWERED ALL PATIENT/FAMILY QUESTIONS, PT VERBALIZED COMPLETE UNDERSTANDING. IV SITE REMOVED WITH MINIMAL BLOOD AND LUMEN COMPLETELY INTACT. ID BAND REMOVED. ALL BELONGING WITH PATIENT. ESCORTED PT DOWN TO LOBBY VIA AMBULATION. PT DISCHARGE AT THIS TIME TO HOME IN PRIVATE VEHICLE AND STABLE CONDITION.
== END 2018-08-03 11:00 | disposition home or self-care (01) | DRG 710 ==
LOC: MED 18:24 → MTU 07-29 03:05
PROVIDERS: ADMIT Hospitalist; ATTEND Hospitalist
PROC: 0DBU0ZZ Excision of Omentum, Open Approach (ICD-10-PCS; 2018-07-29)
PROC: 0DTJ0ZZ Resection of Appendix, Open Approach (ICD-10-PCS; principal; 2018-07-29 11:30)
DX: A41.9 Sepsis, unspecified organism (principal); I96 Gangrene, not elsewhere classified; E46 Unspecified protein-calorie malnutrition; K35.3 Acute appendicitis with localized peritonitis; K52.9 Noninfective gastroenteritis and colitis, unspecified; K80.20 Calculus of gallbladder without cholecystitis without obstruction; F15.10 Other stimulant abuse, uncomplicated; Z68.25 Body mass index [BMI] 25.0-25.9, adult
CPT/HCPCS: 36415; 80053; 81001; 83690; 85025; 87040; 87070; 87075; 87081; 87186; 87205; 96361; 96365; 96375; 96376; 99285; J0330; J1100; J1170; J1650; J2270; J2405; J2543; J2704; J2710; J3010; J3490; J7030; J7060; Q9967

== ENCOUNTER 2018-08-12 20:44 | Emergency (ER) | payer OTHER ==
[~2018-08-12] VITALS: Ht 172.7 cm; Wt 72.6 kg
[2018-08-12 21:00] VITALS: BP 123/71
[2018-08-12] MEDS: BACITRACIN OINT 500 UNITS/GM PKT TP ONE (22:33)
[2018-08-12 22:45] VITALS: BP 123/71
== END 2018-08-12 22:45 | disposition home or self-care (01) ==
LOC: MED 20:44
DX: T81.31XA Disruption of external operation (surgical) wound, not elsewhere classified, initial encounter (principal); J45.909 Unspecified asthma, uncomplicated; Z90.49 Acquired absence of other specified parts of digestive tract; Y83.8 Other surgical procedures as the cause of abnormal reaction of the patient, or of later complication, without mention of misadventure at the time of the procedure; Y92.89 Other specified places as the place of occurrence of the external cause
CPT/HCPCS: 99283

== ENCOUNTER 2019-01-16 07:00 | Emergency (ER) | payer OTHER ==
[~2019-01-16] VITALS: Ht 172.7 cm; Wt 79.4 kg
[2019-01-16 07:10] VITALS: BP 128/83
--- NOTE | 2019-01-16 07:28 | NUR ---
33 Y M bib self with c/o right sided cough and ear pain with INTERMITTENT productive cough x 3 days, PAIN 6/10, +SWOLLEN AND RED IN THROAT, -FEVER AT THIS TIME BED IS DOWN, LOCKED, BED RAIL X1, ERMD NOTIFIED OF PATIENT STATUS hx--pt denies rx--pt denies
--- NOTE | 2019-01-16 07:43 | NUR ---
DR HIGUERA AT BEDSIDE
[2019-01-16] MEDS ORDERED: PENICILLIN G BENZATHINE L-A 1.2 MU/2 ML SYR IM ONE (07:45)
[2019-01-16] MEDS ORDERED: KETOROLAC 60 MG/2 ML VIAL IM ONE (07:45)
[2019-01-16 08:04] VITALS: BP 128/83
--- NOTE | 2019-01-16 08:05 | NUR ---
Patient discharged with v/s stable. Written and verbal after care instructions given and explained. Patient alert, oriented and verbalized understanding of instructions. Ambulatory with steady gait. All questions addressed prior to discharge. ID band removed. Patient advised to follow up with PMD. Rx of MOTRIN, PREDNISONE given. Patient educated on indication of medication including possible reaction and side effects. Opportunity to ask questions provided and answered.
== END 2019-01-16 08:05 | disposition home or self-care (01) ==
LOC: MED 07:00
DX: J02.0 Streptococcal pharyngitis (principal); J45.909 Unspecified asthma, uncomplicated; F17.200 Nicotine dependence, unspecified, uncomplicated; Z90.49 Acquired absence of other specified parts of digestive tract
CPT/HCPCS: 96372; 99283; J0561; J1885

== ENCOUNTER 2021-04-04 19:35 | Emergency (ER) | payer OTHER ==
[~2021-04-04] VITALS: Ht 172.7 cm; Wt 75.3 kg
[2021-04-04 19:40] VITALS: BP 135/84
[2021-04-04] MEDS ORDERED: ACETAMINOPHEN EXTRA STRENGTH 500 MG TAB PO ONE (20:10)
[2021-04-04 20:33] LABS: BASOPHILS # (AUTO) 0.1 K/uL (0.00-0.22); BASOPHILS % (AUTO) 0.4 % (0.0-2.0); EOSINOPHILS # (AUTO) 0.1 K/uL (0-0.4); EOSINOPHILS % (AUTO) 0.5 % (0.0-4.0); HEMOGLOBIN 15.2 g/dL (12.0-18.0); LYMPHOCYTES # (AUTO) 2.2 K/uL (2.0-11.5); LYMPHOCYTES % (AUTO) 16.1 % (20.5-51.1); MEAN CORPUSCULAR HEMOGLOBIN 30 pg (27-31); MEAN CORPUSCULAR HGB CONC 34 g/dL (33-37); MEAN CORPUSCULAR VOLUME 89.7 fL (80-94); MONOCYTES # (AUTO) 1.2 K/uL (0.8-1.0); NEUTROPHILS # (AUTO) 10.2 K/uL (1.8-7.7); PLATELET COUNT (AUTO) 341 K/uL (140-450); RED BLOOD CELL COUNT(AUTO) 5.02 MIL/uL (4.20-6.10); WHITE BLOOD COUNT (AUTO) 13.8 K/uL (4.8-10.8)
[2021-04-04 20:33] LABS: APPEARANCE,URINE SL CLOUDY (CLEAR); BILIRUBIN,URINE NEGATIVE (NEGATIVE); BLOOD, URINE 3+ (NEGATIVE); COLOR,URINE YELLOW (YELLOW); LEUKOCYTE ESTERASE ,URINE 1+ (NEGATIVE); NITRITE, URINE NEGATIVE (NEGATIVE); UGLUCOSE NEGATIVE (NEGATIVE)
[2021-04-04 20:53] LABS: ALBUMIN 3.4 g/dL (3.4-5.0); ANION GAP 9.1 (8-16); CARBON DIOXIDE 33.2 mmol/L (21-32); CREATININE 1.1 mg/dL (0.6-1.3); POTASSIUM 3.3 mmol/L (3.5-5.1); TOTAL BILIRUBIN 0.5 mg/dL (0.0-1.0)
[2021-04-04 21:22] LABS: WBC,URINE 20-60 /HPF (0-5)
[2021-04-04] MEDS ORDERED: cefTRIAXone 500 MG in LIDOCAINE MPF 1% 1 ML IM ONE (22:30)
[2021-04-04] MEDS ORDERED: KETOROLAC 15 MG/ML VIAL IVP ONE (22:40)
[2021-04-04] MEDS ORDERED: cefTRIAXone 500 MG VIAL ONE (22:44)
[2021-04-04] MEDS ORDERED: IBUP-2213 PO (22:54)
[2021-04-04] MEDS ORDERED: DOXY100C9 PO (22:54)
[2021-04-04 23:16] VITALS: BP 129/73
[2021-04-05] MEDS ORDERED: DOXYCYCLINE 100 MG CAP PO SCH (09:00)
== END 2021-04-04 23:15 | disposition home or self-care (01) ==
LOC: MED 19:35
DX: N45.1 Epididymitis (principal); J45.909 Unspecified asthma, uncomplicated; H52.10 Myopia, unspecified eye; F17.200 Nicotine dependence, unspecified, uncomplicated; F12.90 Cannabis use, unspecified, uncomplicated; F15.90 Other stimulant use, unspecified, uncomplicated; Z90.49 Acquired absence of other specified parts of digestive tract
CPT/HCPCS: 36415; 76870; 80053; 81001; 85025; 87086; 96365; 96375; 99284; J0696; J1885

== ENCOUNTER 2021-05-29 22:54 | Emergency (ER) | payer OTHER ==
[~2021-05-29] VITALS: Ht 172.7 cm; Wt 77.1 kg
[~2021-05-29 22:54] MED LIST: DOXY100C9 PO; IBUP-2213 PO
[2021-05-29 23:00] VITALS: BP 135/90
--- NOTE | 2021-05-29 23:03 | NUR ---
TO LOBBY A/W BED AMBULATORY
--- NOTE | 2021-05-29 23:20 | NUR ---
Kyler gabriel in [facility] - 05/29/21 at 2321 by SHARONDA PT. AMBULATED TO BED 7 WITH EVEN AND STEADY GAIT
--- NOTE | 2021-05-29 23:21 | NUR ---
PT TAKEN TO BED 7
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
--- NOTE | 2021-05-30 00:04 | NUR ---
Dr. Cartagena examining patient.
--- NOTE | 2021-05-30 00:04 | NUR ---
Kyler gabriel in [facility] - 05/30/21 at 0005 by SHARONDA PAM MENDEZ AT BEDSIDE FOR MEDICAL EXAMINATION.
[2021-05-30 00:57] VITALS: BP 135/90
--- NOTE | 2021-05-30 00:57 | NUR ---
Patient discharged with v/s stable. Written and verbal after care instructions given and explained. Patient verbalized understanding. Ambulatory with steady gait. ID band removed. All questions addressed prior to discharge. Advised to follow up with PMD.
== END 2021-05-30 00:57 | disposition home or self-care (01) ==
LOC: MED 22:54
DX: S31.010A Laceration without foreign body of lower back and pelvis without penetration into retroperitoneum, initial encounter (principal); J45.909 Unspecified asthma, uncomplicated; Z79.899 Other long term (current) drug therapy; Z98.890 Other specified postprocedural states; W21.19XA Struck by other bat, racquet or club, initial encounter; Y93.89 Activity, other specified; Y92.89 Other specified places as the place of occurrence of the external cause; Y99.8 Other external cause status
CPT/HCPCS: 12001; 90471; 90715; 99283

== ENCOUNTER 2022-11-07 18:07 | Emergency (ER) | payer OTHER ==
[~2022-11-07] VITALS: Ht 167.6 cm; Wt 74.8 kg
[~2022-11-07 18:07] MED LIST changes: +DOXY-690 PO; -DOXY100C9 PO
[2022-11-07 18:13] VITALS: BP 136/95
--- NOTE | 2022-11-07 18:32 | NUR ---
PT TAKEN TO US VIA WC
[2022-11-07 19:39] LABS: APPEARANCE,URINE SL CLOUDY (CLEAR); BILIRUBIN,URINE 2+ (NEGATIVE); BLOOD, URINE NEGATIVE (NEGATIVE); COLOR,URINE BROWN (YELLOW); LEUKOCYTE ESTERASE ,URINE TRACE (NEGATIVE); NITRITE, URINE NEGATIVE (NEGATIVE); UGLUCOSE NEGATIVE (NEGATIVE)
[2022-11-07 19:51] LABS: OTHER CASTS, URINE None Seen /LPF (None Seen)
[2022-11-07] MEDS ORDERED: NAPR-54 PO (20:15)
[2022-11-07] MEDS ORDERED: CIPR500T4 PO (20:15)
--- NOTE | 2022-11-07 20:38 | NUR ---
Patient discharged with v/s stable. Written and verbal after care instructions given and explained. Patient alert, oriented and verbalized understanding of instructions. Ambulatory with steady gait. All questions addressed prior to discharge. ID band removed. Patient advised to follow up with PMD. Rx of CIPRO AND NAPROSYN given. Patient educated on indication of medication including possible reaction and side effects. Opportunity to ask questions provided and answered.
== END 2022-11-07 20:38 | disposition home or self-care (01) ==
LOC: MED 18:07
DX: N39.0 Urinary tract infection, site not specified (principal); N43.3 Hydrocele, unspecified; I86.1 Scrotal varices; J45.909 Unspecified asthma, uncomplicated; F12.90 Cannabis use, unspecified, uncomplicated; F15.90 Other stimulant use, unspecified, uncomplicated; Z79.899 Other long term (current) drug therapy
CPT/HCPCS: 76870; 81001; 87086; 99284; Q0092

== ENCOUNTER 2024-04-16 10:21 | Emergency (ER) | payer OTHER ==
[~2024-04-16] VITALS: Ht 172.7 cm; Wt 77.1 kg
[~2024-04-16 10:21] MED LIST changes: +CIPR500T4 PO; +NAPR-337 PO
[2024-04-16 10:51] VITALS: BP 126/83; PULSE 109; RESP 16; TEMP 97.4; O2SAT 96
[2024-04-16 11:10] VITALS: O2SAT 96
[2024-04-16] MEDS: LIDOCAINE MPF 1% 10 MG/ML VIAL INJ ONE (12:17)
[2024-04-16 12:52] VITALS: BP 122/83; PULSE 88; RESP 16; TEMP 98; O2SAT 99
== END 2024-04-16 13:22 | disposition home or self-care (01) ==
LOC: MED 10:21
DX: L02.211 Cutaneous abscess of abdominal wall (principal); F12.90 Cannabis use, unspecified, uncomplicated; J45.909 Unspecified asthma, uncomplicated; Z90.49 Acquired absence of other specified parts of digestive tract; Z90.89 Acquired absence of other organs; Z79.1 Long term (current) use of non-steroidal anti-inflammatories (NSAID); Z79.2 Long term (current) use of antibiotics; Z79.899 Other long term (current) drug therapy
CPT/HCPCS: 10060; 99284; J2001